=== PATIENT | male | born 1985 | race Two or more races ===

== ENCOUNTER 2018-09-01 13:17 | Emergency (ER) | payer OTHER ==
[~2018-09-01] VITALS: Ht 172.7 cm; Wt 117.0 kg
[2018-09-01] MEDS ORDERED: SODIUM CHLORIDE FLUSH 10ML SYR IVF ONE (14:00)
[2018-09-01 14:51] LABS: BASOPHILS # (AUTO) 0.04 x10^3/uL (0-0.1); BASOPHILS % (AUTO) 0 % (0-1); EOSINOPHILS % (AUTO) 0 % (1-7); LYMPHOCYTES # (AUTO) 2.21 x10^3/uL (1-3.4); LYMPHOCYTES % (AUTO) 13 % (22-44); MD NO; MEAN CORPUSCULAR HGB CONC 33.1 g/dL (33.2-36.2); MEAN CORPUSCULAR VOLUME 87.7 fL (81-97); MEAN PLATELET VOLUME 8.5 fL (7.4-10.4); MONOCYTES % (AUTO) 3 % (2-9); NEUTROPHILS # (AUTO) 14.46 x10^3/uL (1.8-6.8); NEUTROPHILS % (AUTO) 84 % (42-75); PLATELET COUNT 304 x10^3/uL (130-400); RED BLOOD COUNT 5.42 x10^6/uL (4.38-5.82); RED CELL DISTRIBUTION WIDTH 13.4 % (9.4-14.8)
[2018-09-01 15:04] LABS: ALANINE AMINOTRANSFERASE 42 U/L (12-78); ALBUMIN 4.1 g/dL (3.4-5.0); ANION GAP 10 mmol/L (5-15); CALCIUM 8.7 mg/dL (8.5-10.1); CHLORIDE 104 mmol/L (98-107)
[2018-09-01 15:07] LABS: ALKALINE PHOSPHATASE 93 U/L (45-117); BILIRUBIN,TOTAL 0.6 mg/dL (0.2-1.0); CREATININE 0.94 mg/dL (0.7-1.3); TOTAL PROTEIN 8.2 g/dL (6.4-8.2)
[2018-09-01 15:18] LABS: INTERNATIONAL NORMALIZED RATIO 1.02 (0.93-1.1); PROTHROMBIN TIME 10.6 Seconds (9.6-11.5)
[2018-09-01] MEDS ORDERED: MAALOX/HYOSCYAMINE/LIDOCAINE 45 ML BTL ONE (15:52)
[2018-09-01] MEDS ORDERED: MAALOX/HYOSCYAMINE/LIDOCAINE 45 ML BTL PO ONE (16:00)
[2018-09-01 16:10] LABS: CULTURE INDICATED? NO; MICROSCOPIC NOT IND
[2018-09-01 16:36] VITALS: BP 142/76
== END 2018-09-01 17:39 | disposition home or self-care (01) ==
LOC: ED 17:00
DX: K25.3 Acute gastric ulcer without hemorrhage or perforation (principal); B96.81 Helicobacter pylori [H. pylori] as the cause of diseases classified elsewhere
CPT/HCPCS: 36415; 76700; 80053; 81003; 83690; 85025; 85610; 86677; 99285

== ENCOUNTER 2020-10-08 14:53 | Observation (INO) | payer OTHER ==
[~2020-10-08] VITALS: Ht 172.7 cm; Wt 122.2 kg
--- NOTE | 2020-10-08 16:04 | NUR ---
PT RESTING IN GURNEY WITH EYES CLOSED, SPOUSE AT BS, NAD NOTED AT THIS TIME, NO NEEDS PER PT, WILL CONTINE TO MONITOR.
[2020-10-08 16:05] LABS: MEAN CORPUSCULAR HEMOGLOBIN 29.2 pg (27.5-34.5); MEAN CORPUSCULAR HGB CONC 33.7 g/dL (33.2-36.2); MEAN PLATELET VOLUME 8.6 fL (7.4-10.4); PLATELET COUNT 300 x10^3/uL (130-400); RED CELL DISTRIBUTION WIDTH 16.8 % (9.4-14.8)
[2020-10-08 16:15] LABS: ALBUMIN 3.3 g/dL (3.4-5.0); ANION GAP 6 mmol/L (5-15); CALCIUM 8.9 mg/dL (8.5-10.1); CHLORIDE 105 mmol/L (98-107)
[2020-10-08 16:19] LABS: ALANINE AMINOTRANSFERASE 185 U/L (12-78); ALKALINE PHOSPHATASE 277 U/L (45-117); BILIRUBIN,TOTAL 14.4 mg/dL (0.2-1.0); CREATININE 1.02 mg/dL (0.7-1.3); TOTAL PROTEIN 7.7 g/dL (6.4-8.2)
[2020-10-08 16:29] LABS: MD YES
[2020-10-08] MEDS ORDERED: SODIUM CHLORIDE FLUSH 10ML SYR IVF PRN (17:00)
[2020-10-08] MEDS ORDERED: ENOXAPARIN 40 MG/0.4 ML SQ SCH (18:00)
[2020-10-08] MEDS ORDERED: ONDANSETRON 2MG/ML, 2ML IVPush PRN (18:00)
[2020-10-08 18:29] LABS: LYMPH#(MANUAL) 2.32 x10^3/uL (1-3.4); LYMPHS% (MANUAL) 28 % (22-44); MONOS#(MANUAL) 0.17 x10^3/uL (0.3-2.7); MONOS% (MANUAL) 2 % (2-9); REACTIVE LYMPHS # (MANUAL) 0.75 x10^3/uL (0-0); REACTIVE LYMPHS % (MANUAL) 9 % (0-0); SEG#(MANUAL) 5.06 x10^3/uL (1.8-6.8); SEGS% (MANUAL) 61 % (42-75)
[2020-10-08 18:30] LABS: <PLATELET ESTIMATE> ADEQUATE; <RBC MORPHOLOGY> NORMAL; LARGE PLATELETS 1+
[2020-10-08] MEDS ORDERED: MORPHINE SULFATE 4 MG/ML, 1ML IVPush PRN (18:30)
[2020-10-08] MEDS: D5%-0.45NACL+KCL 20MEQ 1,000 ML IV SCH (18:59)
[2020-10-08] MEDS ORDERED: ENOXAPARIN 40 MG/0.4 ML ONE (19:09)
[2020-10-08] MEDS: AMPICILLIN/SULBACTAM 3 GM in SODIUM CHLORIDE 0.9% 100 ML IV SCH (19:19)
[2020-10-08 20:25] LABS: INTERNATIONAL NORMALIZED RATIO 1.01 (0.93-1.1); PROTHROMBIN TIME 10.7 Seconds (9.6-11.5)
[2020-10-09] MEDS: AMPICILLIN/SULBACTAM 3 GM in SODIUM CHLORIDE 0.9% 100 ML IV SCH ×4 (00:36→20:40)
--- NOTE | 2020-10-09 01:15 | NUR ---
PT RESTING IN GURNEY WITH EYES CLOSED, SPOUSE AT BS, NAD NOTED AT THIS TIME, NO NEEDS PER PT, WILL CONTINE TO MONITOR.
[2020-10-09 02:30] VITALS: BP 110/74
[2020-10-09 06:25] LABS: ALANINE AMINOTRANSFERASE 160 U/L (12-78); ALBUMIN 3.1 g/dL (3.4-5.0); ANION GAP 7 mmol/L (5-15); CALCIUM 9.2 mg/dL (8.5-10.1); CHLORIDE 107 mmol/L (98-107); IRON LEVEL 158 mcg/dL (65-175)
[2020-10-09 06:33] LABS: % IRON SATURATION 72 % (20-55); ALKALINE PHOSPHATASE 254 U/L (45-117); BILIRUBIN,TOTAL 14.7 mg/dL (0.2-1.0); CREATINE KINASE, TOTAL 157 U/L (39-308); TOTAL IRON BINDING CAPACITY 220 mcg/dL (250-450); TOTAL PROTEIN 7.1 g/dL (6.4-8.2)
[2020-10-09 06:36] LABS: BASOPHILS % (AUTO) 2 % (0-1); EOSINOPHILS % (AUTO) 2 % (1-7); LYMPHOCYTES % (AUTO) 24 % (22-44); MEAN CORPUSCULAR HEMOGLOBIN 29.2 pg (27.5-34.5); MEAN CORPUSCULAR HGB CONC 33.8 g/dL (33.2-36.2); MEAN PLATELET VOLUME 9.2 fL (7.4-10.4); MONOCYTES % (AUTO) 9 % (2-9); NEUTROPHILS % (AUTO) 62 % (42-75); PLATELET COUNT 293 x10^3/uL (130-400); RED BLOOD COUNT 4.62 x10^6/uL (4.38-5.82); RED CELL DISTRIBUTION WIDTH 16.9 % (9.4-14.8)
[2020-10-09 07:40] VITALS: BP 116/76
[2020-10-09] MEDS: D5%-0.45NACL+KCL 20MEQ 1,000 ML IV SCH (07:56)
[2020-10-09 08:11] LABS: MD SCAN
[2020-10-09 09:13] LABS: MEAN CORPUSCULAR HEMOGLOBIN 28.9 pg (27.5-34.5); MEAN CORPUSCULAR HGB CONC 33.6 g/dL (33.2-36.2); MEAN PLATELET VOLUME 8.9 fL (7.4-10.4); PLATELET COUNT 294 x10^3/uL (130-400); RED BLOOD COUNT 4.66 x10^6/uL (4.38-5.82); RED CELL DISTRIBUTION WIDTH 16.9 % (9.4-14.8)
[2020-10-09 10:58] LABS: MD YES
[2020-10-09 11:00] LABS: BAND#(MANUAL) 0.08 x10^3/uL; BANDS%(MANUAL) 1 % (0-7); EOS#(MANUAL) 0.15 x10^3/uL (0.0-0.4); EOS% (MANUAL) 2 % (1-7); LYMPHS% (MANUAL) 26 % (22-44); MONOS#(MANUAL) 0.15 x10^3/uL (0.3-2.7); MONOS% (MANUAL) 2 % (2-9); SEG#(MANUAL) 5.31 x10^3/uL (1.8-6.8); SEGS% (MANUAL) 69 % (42-75)
[2020-10-09 11:03] LABS: TARGET CELLS 2+
[2020-10-09 11:05] LABS: <PLATELET ESTIMATE> ADEQUATE; <PLT MORPHOLOGY> NORMAL PLT MORPH
[2020-10-09] MEDS ORDERED: CHLORHEXIDINE 15 ML UDC ONE (11:44)
[2020-10-09] MEDS ORDERED: ONDANSETRON 2MG/ML, 2ML ONE (12:37)
[2020-10-09] MEDS ORDERED: SUCCINYLCHOLINE 20 MG/ML, 10ML ONE (12:37)
[2020-10-09] MEDS ORDERED: ROCURONIUM 10MG/ML,5ML ONE (12:37)
[2020-10-09] MEDS ORDERED: DEXAMETHASONE 4 MG/ML, 1ML ONE (12:37)
[2020-10-09] MEDS ORDERED: LIDOCAINE-MPF 2% ,5ML ONE (12:37)
[2020-10-09] MEDS ORDERED: PROPOFOL 10 MG/ML, 20ML ONE (12:37)
[2020-10-09] MEDS ORDERED: FENTANYL PF 100 MCG/2ML ONE ×2 (12:38→12:52)
[2020-10-09] MEDS ORDERED: HYDROmorphone 1 MG/ML, 1ML INJ IVPush PRN (13:00)
[2020-10-09] MEDS ORDERED: METHOCARBAMOL 1,000 MG in DEXTROSE 5% 100 ML IV PRN (13:00)
[2020-10-09] MEDS ORDERED: PROMETHAZINE 25 MG SUPP PR PRN (13:00)
[2020-10-09] MEDS ORDERED: FENTANYL PF 100 MCG/2ML IV PRN (13:00)
[2020-10-09] MEDS ORDERED: PROMETHAZINE 25 MG/ML, 1ML IVPush PRN (13:00)
[2020-10-09] MEDS ORDERED: OXYcodone 5 MG/5 ML ORAL.SOL UDC PO PRN (13:00)
[2020-10-09] MEDS ORDERED: ACETAMINOPHEN 325 MG TABLET PO PRN (13:00)
[2020-10-09] MEDS ORDERED: LORazepam 2 MG/ML, 1ML IVPush PRN (13:00)
[2020-10-09] MEDS ORDERED: ONDANSETRON 2MG/ML, 2ML IVPush PRN (13:00)
[2020-10-09] MEDS ORDERED: INDOMETHACIN 50 MG SUPP.RECT ONE (13:50)
[2020-10-09] MEDS ORDERED: OMNIPAQUE 350 MG/ML, 50 ML BOTTLE ONE (13:56)
[2020-10-09] MEDS ORDERED: INDOMETHACIN 50 MG SUPP.RECT PR ONE (14:00)
[2020-10-09 15:55] VITALS: BP 128/85
[2020-10-09 18:55] VITALS: BP 100/66
[2020-10-09] MEDS: PANTOPRAZOLE 40MG TABLET PO SCH (20:40)
[2020-10-10 00:31] VITALS: BP 96/63
[2020-10-10] MEDS: AMPICILLIN/SULBACTAM 3 GM in SODIUM CHLORIDE 0.9% 100 ML IV SCH ×2 (02:48→09:02)
[2020-10-10 05:54] LABS: MEAN CORPUSCULAR HGB CONC 33.9 g/dL (33.2-36.2); PLATELET COUNT 285 x10^3/uL (130-400); RED BLOOD COUNT 4.41 x10^6/uL (4.38-5.82); RED CELL DISTRIBUTION WIDTH 16.8 % (9.4-14.8)
[2020-10-10 05:56] LABS: ALANINE AMINOTRANSFERASE 137 U/L (12-78); ALBUMIN 2.9 g/dL (3.4-5.0); ANION GAP 7 mmol/L (5-15); CALCIUM 9.2 mg/dL (8.5-10.1); CHLORIDE 106 mmol/L (98-107)
[2020-10-10 05:59] LABS: ALKALINE PHOSPHATASE 239 U/L (45-117); BILIRUBIN,TOTAL 13.7 mg/dL (0.2-1.0); TOTAL PROTEIN 6.8 g/dL (6.4-8.2)
[2020-10-10 07:15] VITALS: BP 98/59
[2020-10-10 07:25] LABS: MD YES
[2020-10-10 07:27] LABS: ANISOCYTOSIS 1+; BAND#(MANUAL) 0.11 x10^3/uL; BANDS%(MANUAL) 1 % (0-7); LYMPHS% (MANUAL) 19 % (22-44); METAMYELOCYTES# (MANUAL) 0.11 x10^3/uL (0-0); METAMYELOCYTES% (MANUAL) 1 % (0-1); MONOS#(MANUAL) 0.42 x10^3/uL (0.3-2.7); MONOS% (MANUAL) 4 % (2-9); SEG#(MANUAL) 7.88 x10^3/uL (1.8-6.8); SEGS% (MANUAL) 75 % (42-75)
[2020-10-10 07:28] LABS: <PLATELET ESTIMATE> ADEQUATE; <PLT MORPHOLOGY> NORMAL PLT MORPH
[2020-10-10] MEDS ORDERED: AMOX1TAB64 PO (08:15)
[2020-10-10 08:35] VITALS: BP 97/60
[2020-10-10 08:40] VITALS: BP 106/71
[2020-10-10 08:45] VITALS: BP 120/81
[2020-10-10] MEDS: PANTOPRAZOLE 40MG TABLET PO SCH (08:57)
[2020-10-10] MEDS ORDERED: AMOX1TAB12 PO ×2 (10:08→10:27)
== END 2020-10-10 11:30 | disposition home or self-care (01) ==
LOC: SUATTDRO 17:37 → ED 18:07 → INTOOBSV 18:32 → EDIP 18:32 → 3WST 10-09 02:16 → DCLOUNGE 10-10 11:08
PROVIDERS: ADMIT Hospitalist; ATTEND Internal Medicine
DX: R17 Unspecified jaundice (principal); Z20.828 Contact with and (suspected) exposure to other viral communicable diseases; K80.50 Calculus of bile duct without cholangitis or cholecystitis without obstruction; E88.09 Other disorders of plasma-protein metabolism, not elsewhere classified; B15.9 Hepatitis A without hepatic coma; R79.89 Other specified abnormal findings of blood chemistry; R79.0 Abnormal level of blood mineral; I81 Portal vein thrombosis; E66.9 Obesity, unspecified; Z79.899 Other long term (current) drug therapy
CPT/HCPCS: 36415; 43262; 43274; 74181; 74328; 80053; 80074; 82550; 83540; 83550; 83690; 84443; 85025; 85610; 87635; 96361; 96365; 96366; 99284; C1769; C1894; C2625; G0378; J0295; J0330; J1100; J2405; J2704; J3010; J3480; J3490; Q9967

== ENCOUNTER → 2020-11-13 | Outpatient (CLI) | payer OTHER ==
[~2020-11-13] MED LIST: AMOX1TAB12 PO; AMOX1TAB64 PO
[2020-11-13 13:06] LABS: CHLORIDE 107 mmol/L (98-107)
[2020-11-13 13:20] LABS: ALANINE AMINOTRANSFERASE 164 U/L (12-78); ALBUMIN 3.9 g/dL (3.4-5.0); ALKALINE PHOSPHATASE 135 U/L (45-117); BILIRUBIN,TOTAL 1.2 mg/dL (0.2-1.0); CALCIUM 9.1 mg/dL (8.5-10.1); CREATININE 0.88 mg/dL (0.7-1.3); TOTAL PROTEIN 7.8 g/dL (6.4-8.2)
[2020-11-13 13:43] LABS: ANION GAP 7 mmol/L (5-15)
== END | disposition home or self-care (01) ==
LOC: RAD 11:19
PROVIDERS: ATTEND Internal Medicine Gastroenterology
DX: K80.50 Calculus of bile duct without cholangitis or cholecystitis without obstruction (principal)
CPT/HCPCS: 36415; 76700; 80053

== ENCOUNTER 2021-02-12 13:53 | Outpatient (CLI) | payer OTHER | END 2021-02-12 23:59 | disposition home or self-care (01) | LOC: STAR 13:53 | PROVIDERS: ATTEND Internal Medicine Gastroenterology | DX: Z20.822 Contact with and (suspected) exposure to COVID-19 (principal); K80.50 Calculus of bile duct without cholangitis or cholecystitis without obstruction | CPT/HCPCS: U0003 ==

== ENCOUNTER 2021-02-18 08:24 | Day surgery (SDC) | payer OTHER ==
[~2021-02-18] VITALS: Ht 172.7 cm; Wt 123.4 kg
[2021-02-18 09:07] VITALS: BP 120/83
[2021-02-18] MEDS ORDERED: LACTATED RINGERS 1,000 ML IV SCH (09:30)
[2021-02-18] MEDS ORDERED: CHLORHEXIDINE 15 ML UDC PO ONE (09:30)
[2021-02-18] MEDS ORDERED: PROPOFOL 10 MG/ML, 20ML ONE (10:02)
[2021-02-18] MEDS ORDERED: NEOSTIGMINE 1 MG/ML, 10ML ONE (10:02)
[2021-02-18] MEDS ORDERED: CEFAZOLIN 1,000 MG ONE (10:02)
[2021-02-18] MEDS ORDERED: GLYCOPYRROLATE 0.2MG/1ML, 5ML ONE (10:02)
[2021-02-18] MEDS ORDERED: MIDAZOLAM 1 MG/ML, 2ML ONE (10:02)
[2021-02-18] MEDS ORDERED: ROCURONIUM 10MG/ML,5ML ONE (10:02)
[2021-02-18] MEDS ORDERED: FENTANYL PF 250 MCG/5ML ONE (10:02)
[2021-02-18] MEDS ORDERED: OMNIPAQUE 350 MG/ML, 50 ML BOTTLE ONE (10:05)
[2021-02-18] MEDS ORDERED: hydrALAzine 20 MG/ML, 1ML IV PRN (11:00)
[2021-02-18] MEDS ORDERED: OXYcodone 5 MG/5 ML ORAL.SOL UDC PO PRN (11:00)
[2021-02-18] MEDS ORDERED: MEPERIDINE/PF 25MG/0.5ML IVPush PRN (11:00)
[2021-02-18] MEDS ORDERED: ACETAMINOPHEN 325 MG TABLET PO PRN (11:00)
[2021-02-18] MEDS ORDERED: HYDROmorphone 1 MG/ML, 1ML INJ IVPush PRN (11:00)
[2021-02-18] MEDS ORDERED: morphine SULFATE 10 MG/ML, 1ML IVPush PRN (11:00)
[2021-02-18] MEDS ORDERED: ONDANSETRON 2MG/ML, 2ML IVPush PRN (11:00)
[2021-02-18] MEDS ORDERED: LABETALOL 5MG/ML, 20ML IV PRN (11:00)
[2021-02-18] MEDS ORDERED: FENTANYL PF 100 MCG/2ML IV PRN (11:00)
[2021-02-18] MEDS ORDERED: INDOMETHACIN 50 MG SUPP.RECT ONE (11:20)
== END 2021-02-18 13:05 | disposition home or self-care (01) ==
LOC: OUT 08:24
PROVIDERS: ATTEND Internal Medicine Gastroenterology
DX: K80.50 Calculus of bile duct without cholangitis or cholecystitis without obstruction (principal); Z72.89 Other problems related to lifestyle
CPT/HCPCS: 43264; 43275; 74328; C1769; J0690; J2250; J2704; J2710; J3010; J7120; Q9967